=== PATIENT | male | born 1990 | race Caucasian/White ===

== ENCOUNTER 2020-10-17 14:59 | Emergency (ER) | payer OTHER ==
[~2020-10-17] VITALS: Ht 182.9 cm; Wt 65.8 kg
[~2020-10-17 14:59] MED LIST: ALBU90OI INH; ANTOXYBENA LEFTEAR; Amoxicillin875 MG PO; Flonase 0.05% N16 GM; LEVO750 PO
[2020-10-17] MEDS ORDERED: IBU800 MG PO (16:08)
[2020-10-17] MEDS ORDERED: Ventolin/Prove6.7 GM INH (16:08)
== END 2020-10-17 16:31 | disposition home or self-care (01) ==
LOC: ER 14:59
DX: U07.1 COVID-19 (principal)
CPT/HCPCS: 99282; A9270

== ENCOUNTER 2020-10-18 12:52 | Emergency (ER) | payer OTHER ==
[~2020-10-18 12:52] MED LIST changes: +IBU800 MG PO; +Ventolin/Prove6.7 GM INH
== END 2020-10-18 13:29 | disposition home or self-care (01) ==
LOC: ER 12:52
DX: U07.1 COVID-19 (principal); Z87.891 Personal history of nicotine dependence
CPT/HCPCS: 99282

== ENCOUNTER 2021-05-20 10:50 | Emergency (ER) | payer OTHER ==
[~2021-05-20] VITALS: Ht 182.9 cm; Wt 77.1 kg
== END 2021-05-20 12:13 | disposition home or self-care (01) ==
LOC: ER 10:50
DX: S51.812A Laceration without foreign body of left forearm, initial encounter (principal); W26.0XXA Contact with knife, initial encounter
CPT/HCPCS: 12031; 36415; 73110; 90471; 90714; 99283-25

== ENCOUNTER 2021-10-08 18:41 | Emergency (ER) | payer OTHER ==
[~2021-10-08] VITALS: Ht 182.9 cm; Wt 74.8 kg
== END 2021-10-08 19:23 | disposition home or self-care (01) ==
LOC: ER 18:41
DX: T67.5XXA Heat exhaustion, unspecified, initial encounter (principal); F17.210 Nicotine dependence, cigarettes, uncomplicated; X30.XXXA Exposure to excessive natural heat, initial encounter; Z59.00 Homelessness unspecified
CPT/HCPCS: 99284

== ENCOUNTER 2021-10-21 03:55 | Emergency (ER) | payer OTHER ==
[~2021-10-21] VITALS: Ht 182.9 cm; Wt 77.1 kg
== END 2021-10-21 04:50 | disposition home or self-care (01) ==
LOC: ER 03:55
DX: U07.1 COVID-19 (principal)
CPT/HCPCS: A9270